=== PATIENT | female | born 1960 | race Hispanic/Latino ===

== ENCOUNTER 2022-09-23 12:20 | Outpatient (CLI) | payer MEDICARE, MEDICAID | END 2022-09-23 12:21 | disposition home or self-care (01) | LOC: EEG 12:20 | PROVIDERS: ATTEND Psychiatry & Neurology Neurology | DX: R56.9 Unspecified convulsions (principal) | CPT/HCPCS: 95816; 95957 ==

== ENCOUNTER 2023-08-07 08:46 | Emergency (ER) | payer MEDICARE, MEDICAID ==
[2023-08-07] MEDS ORDERED: Ketorolac Tromethamine 30 MG/ML VIAL ONE (09:44)
== END 2023-08-07 10:13 | disposition home or self-care (01) ==
LOC: ERS 08:46
DX: M25.552 Pain in left hip (principal); M79.672 Pain in left foot
CPT/HCPCS: 72170; 96372; J1885

== ENCOUNTER 2023-08-16 17:00 | Outpatient (CLI) | payer MEDICARE, MEDICAID | END 2023-08-16 17:01 | disposition home or self-care (01) | LOC: SLEEPLAB 17:00 | PROVIDERS: ATTEND Family Medicine | DX: G47.33 Obstructive sleep apnea (adult) (pediatric) (principal); R06.83 Snoring; R09.89 Other specified symptoms and signs involving the circulatory and respiratory systems; F32.A Depression, unspecified; R53.83 Other fatigue | CPT/HCPCS: 95800 ==

== ENCOUNTER 2025-07-30 10:23 | Outpatient (CLI) | payer MEDICARE, MEDICAID | END 2025-07-30 10:24 | disposition home or self-care (01) | LOC: BICMAMMO 10:23 | PROVIDERS: ATTEND Nurse Practitioner Family | DX: Z12.31 Encounter for screening mammogram for malignant neoplasm of breast (principal) | CPT/HCPCS: 77063; 77067 ==